=== PATIENT | male | born 1940 | race Caucasian/White ===

== ENCOUNTER 2018-08-14 19:23 | Emergency (ER) | payer MEDICARE, OTHER ==
[~2018-08-14] VITALS: Ht 175.3 cm; Wt 99.8 kg
[2018-08-14] MEDS ORDERED: ROSU20TA2 PO (19:53)
[2018-08-14] MEDS ORDERED: UBID100C13 PO (19:53)
[2018-08-14] MEDS ORDERED: HYDROCODONE-ACETAMIN 5-325 MG (19:53)
[2018-08-14] MEDS ORDERED: EZETIMIBE 10 MG TABLET (19:53)
[2018-08-14] MEDS ORDERED: EXFORGE (19:53)
[2018-08-14] MEDS ORDERED: ASPI81TA31 PO (19:53)
[2018-08-14] MEDS ORDERED: MULT-1045 PO (19:53)
--- NOTE | 2018-08-14 20:06 | NUR ---
DR JAIN INTO EVAL PATIENT
[2018-08-14] MEDS: HYDROCODONE/APAP 5-325MG TABLET PO ONE (20:23)
[2018-08-14] MEDS ORDERED: HYDROCODONE/APAP 5-325MG TABLET ONE (20:24)
[2018-08-14] MEDS ORDERED: LIDOCAINE HCL 2% 20 ML VIAL ONE (20:24)
[2018-08-14] MEDS: LIDOCAINE HCL 1% 20 ML VIAL IJ ONE (20:31)
--- NOTE | 2018-08-14 20:42 | NUR ---
PATIENT OUT OF UNIT FOR CT SCAN VIA GURNY
--- NOTE | 2018-08-14 20:57 | NUR ---
PATIENT BACK FROM CT SCAN WITH NO DISTRESS NOTED
--- NOTE | 2018-08-14 22:00 | NUR ---
Patient discharged to home in stable conditon WITH TAKING PATIENT HOME. Written and verbal after care instructions given. Patient verbalizes understanding of instructions.WAS [employer] RX OF NAHEED
[2018-08-14 22:01] VITALS: BP 138/77
== END 2018-08-14 22:02 | disposition home or self-care (01) ==
LOC: ER 19:23
DX: S80.01XA Contusion of right knee, initial encounter (principal); M23.91 Unspecified internal derangement of right knee; E78.5 Hyperlipidemia, unspecified; Z79.82 Long term (current) use of aspirin; Z79.899 Other long term (current) drug therapy; X58.XXXA Exposure to other specified factors, initial encounter; Y93.89 Activity, other specified; Y92.89 Other specified places as the place of occurrence of the external cause; Y99.8 Other external cause status
CPT/HCPCS: 20610; 73700; 99284; J3490; A4663

== ENCOUNTER 2021-10-17 03:16 | Emergency (ER) | payer MEDICARE, OTHER ==
[~2021-10-17] VITALS: Ht 175.3 cm; Wt 99.8 kg
[~2021-10-17 03:16] MED LIST: ASPI81TA31 PO; EXFORGE; EZETIMIBE 10 MG TABLET; HYDROCODONE-ACETAMIN 5-325 MG; MULT-1045 PO; ROSU20TA2 PO; UBID100C13 PO
--- NOTE | 2021-10-17 03:25 | NUR ---
Dr. Olmos at bedside for MSE.
--- NOTE | 2021-10-17 03:51 | NUR ---
Patient discharged to home in stable condition. Written and verbal after care instructions given. Patient verbalizes understanding of instructions. Stressed follow up or return to ER for worsening s/s. Patient out of ER with steady gait, no acute signs of distress, VSS, all belongings taken.
[2021-10-17 03:52] VITALS: BP 140/77
== END 2021-10-17 03:52 | disposition home or self-care (01) ==
LOC: ER 03:22
DX: S41.111A Laceration without foreign body of right upper arm, initial encounter (principal); E78.5 Hyperlipidemia, unspecified; Z90.89 Acquired absence of other organs; Z79.82 Long term (current) use of aspirin; Z79.899 Other long term (current) drug therapy; W06.XXXA Fall from bed, initial encounter; Y93.89 Activity, other specified; Y92.89 Other specified places as the place of occurrence of the external cause; Y99.8 Other external cause status
CPT/HCPCS: A4663